=== PATIENT | female | born 1965 | race African-American/Black ===

== ENCOUNTER 2016-09-02 07:46 | Emergency (ER) | payer OTHER ==
[2016-09-02 07:52] VITALS: TEMP 98; BMI 29.2
--- NOTE | 2016-09-02 08:02 | PDOC ---
History of Present Illness - General History Source: Patient Exam Limitations: No Limitations <Jelly Hairston - Last Filed: 09/02/16 11:56> <Ajay Silverio - Last Filed: 09/02/16 15:45> - General Chief Complaint: Chest Pain Stated Complaint: CHEST PAIN Time Seen by Provider: 09/02/16 07:53 - History of Present Illness Initial Comments: 09/02/16 10:38 The patient is a 51 year old female, with a significant past medical history of liposuction surgery(2 weeks ago), asthma, rheumatoid arthritis, and hypertension (no longer on meds as per doctors orders), who presents to the emergency department complaining of chest pain since approximately 04:30. The patient reports she woke up feeling fine this morning, but on her way to work she began to develop some nausea. Following the nausea, patient reports chest pain, which she describes as a sharp pressure localized at the center of her chest. Patient reports pain radiates into her left back. She reports associated shortness of breath and weakness. She states she attempted to cough to gather some air, but states the coughing makes her chest pain worse. Patient reports some tightness in her legs with associated swelling. She reports her right leg swelling is part of her baseline. Patient managed to get herself to the bus stop after resting, but called EMS due to chest pain and increased coldness. She denies any fever, chills, vomiting, or palpitations, hemoptysis. During transport, EMS administered 4 baby aspirin and Zofran, with relief of nausea. Patient had liposuction 2 weeks ago and has a drain in place(draining yellow serous fluids) , which she is supposed to get removed today. No associated fevers/chills, n/v, abd pain, back pain. Patient has been intubated in the past due to allergies. She denies any history of DVTs or PEs. Allergies: NKDA Past Surgical History: Gastric Bypass Social History: Nonsmoker. No ETOH or drug use. (Jelly Hairston) Past History <Jelly Hairston - Last Filed: 09/02/16 11:56> - Past Medical History Asthma: Yes HTN: Yes Other medical history: RHEUMATOID ARTHRITIS. - Surgical History Abdominal Surgery: Yes (GASTRIC BYPASS: 2014. ROSELINE WOLF 08/21/16.) - Psycho/Social/Smoking Cessation Hx Anxiety: No Suicidal Ideation: No Smoking History: Never smoked Hx Alcohol Use: No Drug/Substance Use Hx: No Substance Use Type: None <Ajay Silverio - Last Filed: 09/02/16 15:45> - Past Medical History Allergies/Adverse Reactions: Allergies Allergy/AdvReac Type Severity Reaction Status Date / Time shellfish derived Allergy Verified 09/02/16 08:41 Home Medications: Ambulatory Orders NK [No Known Home Medication] 09/02/16 Review of Systems - Review of Systems Able to Perform ROS?: Yes <Jelly Hairston - Last Filed: 09/02/16 11:56> <Ajay Silverio - Last Filed: 09/02/16 15:45> - Review of Systems Comments:: 09/02/16 10:40 Constitutional: +weakness. no reported Fever, Chills, HEENT: no reported vision changes, sore throat Respiratory: +cough, +sob, no reported hemoptysis Cardiac: +chest pain, +leg swelling. No reported palpitations, light headedness Abd/GI: +nausea. no reported abd pain, vomiting, blood per rectum, melena, diarrhea : no reported dysuria, frequency, discharge Musculskelatal: no reported back pain, joint swelling Skin: no reported bruising, erythema, rash Neurological: no reported headache, numbness, tingling, ataxia. Hematologic: no reported anemia, easy bruising, easy bleeding (Renee Hairstony) *Physical Exam <Jelly Hairston - Last Filed: 09/02/16 11:56> <Ajay Silverio - Last Filed: 09/02/16 15:45> - Vital Signs Last Vital Signs Temp Pulse Resp BP Pulse Ox 98 F 50 L 16 119/84 98 09/02/16 07:50 09/02/16 14:30 09/02/16 14:30 09/02/16 14:30 09/02/16 14:30 - Physical Exam Comments: 09/02/16 10:42 GENERAL: The patient is awake, alert, and fully oriented, Nontoxic - in no acute distress. HEAD: Normocephalic, atraumatic. EYES: extraocular movements intact, sclera anicteric, conjunctiva clear. ENT: Normal voice, Moist mucous membranes. NECK: Normal range of motion, supple LUNGS: Breath sounds equal, clear to auscultation bilaterally. No wheezes, no rhonchi, no rales. HEART: Regular rate and rhythm, normal S1 and S2 without murmur, rub or gallop. ABDOMEN: abd wound c/d/i, ELY drain in place with small amount of serous drainage , Soft, nontender, normoactive bowel sounds. No guarding, no rebound. No CVA tenderness EXTREMITIES: +edema of L calf, no tendrness, Normal range of motion NEUROLOGICAL: No facial assymetry, Normal speech, moving all 4 extermities spontaneously and symmetrically PSYCH: Normal mood, normal affect. SKIN: Warm, Dry, normal turgor. (Jelly Hairston) Heart Score/ECG Review <Jelly Hairston - Last Filed: 09/02/16 11:56> <Ajay Silverio - Last Filed: 09/02/16 15:45> - ECG Impressions Comment:: 09/02/16 08:21 Twelve-lead EKG was performed and reviewed by me. There is normal sinus rhythm with a rate of 55 The axis is normal. possible lead v2/v3 lead reversal Nonspecific T wave abnormality (Ajay Silverio) ED Treatment Course - LABORATORY CBC & Chemistry Diagram: 09/02/16 08:31 09/02/16 08:31 <Jelly Hairston - Last Filed: 09/02/16 11:56> - LABORATORY CBC & Chemistry Diagram: 09/02/16 08:31 09/02/16 08:31 <Ajay Silverio - Last Filed: 09/02/16 15:45> - ADDITIONAL ORDERS Additional order review: Laboratory Results 09/02/16 09/02/16 09/02/16 14:20 08:31 08:31 INR 1.04 PTT (Actin FS) 36.8 H D-Dimer Sodium Potassium Chloride Carbon Dioxide Anion Gap BUN Creatinine Creat Clearance w eGFR Random Glucose Calcium Total Bilirubin AST ALT Alkaline Phosphatase Creatine Kinase 97 Troponin I < 0.02 B-Natriuretic Peptide Total Protein Albumin Serum , Qual Negative 09/02/16 09/02/16 09/02/16 08:31 08:31 08:31 INR PTT (Actin FS) D-Dimer 433 H Sodium Potassium Chloride Carbon Dioxide Anion Gap BUN Creatinine Creat Clearance w eGFR Random Glucose Calcium Total Bilirubin AST ALT Alkaline Phosphatase Creatine Kinase 107 Troponin I < 0.02 B-Natriuretic Peptide 230.79 H Total Protein Albumin Serum , Qual 09/02/16 08:31 INR PTT (Actin FS) D-Dimer Sodium 142 Potassium 4.7 Chloride 111 H Carbon Dioxide 25 Anion Gap 6 L BUN 5 L Creatinine 0.6 Creat Clearance w eGFR > 60 Random Glucose 92 Calcium 8.5 Total Bilirubin 0.4 AST 18 ALT 17 Alkaline Phosphatase 100 Creatine Kinase Troponin I B-Natriuretic Peptide Total Protein 5.6 L Albumin 2.9 L Serum , Qual 09/02/16 08:31 RBC 3.74 MCV 82.1 MCHC 32.3 RDW 15.2 MPV 7.4 L Neutrophils % 57.9 Lymphocytes % 31.9 Monocytes % 7.1 Eosinophils % 2.8 Basophils % 0.3 - RADIOLOGY Radiology Studies Ordered: Category Date Time Status CHEST CTA [CT] Stat CT Scan 09/02/16 10:19 Completed CHEST X-RAY PORTABLE* [RAD] Stat Radiology 09/02/16 08:04 Completed DUPLEX VASCUL US-1 LEG [US] Stat Ultrasound 09/02/16 08:17 Completed Radiograph Interpretation: 09/02/16 10:19 EXAM: CXR INTERPRETED BY: Dr. Berkowitz REVIEWED BY: Dr. Silverio IMPRESSION: Moderate cardiomegaly. 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 There is widening of the left AC joint raising possibility of AC separation of indeterminate age and recommend clinical correlation. Findings were discussed with Dr. Silverio at 9:21 AM on . EXAM: Left Leg Doppler US INTERPRETED BY: Dr. Gaona REVIEWED BY: Dr. Silverio IMPRESSION: There is no evidence of deep venous thrombosis in the left lower extremity. EXAM: CT Chest INTERPRETED BY: Dr. Gaona REVIEWED BY: Dr. Silverio IMPRESSION: Unremarkable examination. There is no evidence of a pulmonary embolus in the main pulmonary artery and its proximal branches, bilaterally. No acute lung disease is present. Multiple sutures around the stomach suggestive of a gastric sleeve surgery. Correlate clinically (Hairston,Giomilsy) - Medications Given in the ED: ED Medications Discontinued Medications Generic Name Dose Route Start Last Admin Trade Name Freq PRN Reason Stop Dose Admin Diphenhydramine HCl 50 mg 09/02/16 11:15 09/02/16 11:20 Benadryl Injection - IVPUSH 09/02/16 11:16 50 mg ONCE ONE Administration Medical Decision Making <Jelly Hairston - Last Filed: 09/02/16 11:56> <Ajay Silverio - Last Filed: 09/02/16 15:45> - Medical Decision Making 09/02/16 08:18 51y F hx of asthma, htn (currently controlled w/o meds), 2 weeks s/p liposuction , presents with complaint of chest pain, pt was ambulating to work when she flet sudden onset of nausea associated with a sharp substernal chest pin worse with deep breaths. on exam pt well appearing, in no distress with vitals showing mild bradycardia, with swelling noted in her R calf. differential includes PE/DVT, acs will ck cbc, cmp, trop, bnp, d-dimer ekg, cxr A portion of this note was documented by scribe services under my direction. I have reviewed the details of the note, within reason, and agree with the documentation with the following case summary and management plan written by me 09/02/16 11:53 pts labs reviewed noted for slightly elevated dimer, CTA neg for PE duplex US negative for DVT Trop neg x 1 pt had epsidoe of pruritis after CTA, pt given benadryl 50mg will obtain antoher troponin at 2pm. 09/02/16 15:41 pt feeling improved trop negative no itching nor chest pain will dc with pmd and cardiology fu at [facility] return precautions were disucssed I discussed the physical exam findings, ancillary test results and final diagnoses with the patient. I answered all of the patient's questions. The patient was satisfied with the care received and felt comfortable with the discharge plan and treatment plan. The patient will call their primary care physician within 24 hours to arrange follow-up and will return to the Emergency Department with any new, persistent or worsening symptoms. (Ajay Silverio) *DC/Admit/Observation/Transfer <Jelly Hairston - Last Filed: 09/02/16 11:56> - Discharge Dispostion Admit: No <Ajay Silverio - Last Filed: 09/02/16 15:45> Diagnosis at time of Disposition: Atypical chest pain - Discharge Dispostion Disposition: HOME Condition at time of disposition: Improved - Referrals Referrals: Frank Bob [Other] - Patient Instructions Printed Discharge Instructions: DI for Atypical Chest Pain Additional Instructions: Return to the emergency department immediately with ANY new, persistent or worsening symptoms including any chest pain, shortness of breath or any other concerns. You MUST call and follow up with your doctor and senior tax specialist in 72 hrs for further evaluation of your symptoms. Results were discussed with you. Please make sure your doctor reviews the results of your emergency evaluation. Print Language: UKRAINIAN - Attestations Scribe Attestion: 09/02/16 10:42 Documentation prepared by Jelly Hairston, acting as spanish medical interpreter for Ajay Silverio MD. (Jelly Hairston)
[2016-09-02 08:48] LABS: BASOPHIL 0.3 % (0-2.0); EOSINOPHIL 2.8 % (0-4.5); MCH 26.5 pg (25.7-33.7); MCHC 32.3 g/dl (32.0-36.0); MEAN CELL VOLUME 82.1 fl (80-96); MEAN PLT VOLUME 7.4 fl (7.5-11.1); NEUTROPHILS 57.9 % (42.8-82.8); PLATELET COUNT 274 K/MM3 (134-434); RDW 15.2 % (11.6-15.6); WHITE BLOOD COUNT 4.6 K/mm3 (4.0-10.0)
[2016-09-02 09:12] LABS: INR 1.04 (0.82-1.09); PROTHROMBIN TIME (PATIENT) 11.5 SEC (9.98-11.88)
[2016-09-02 09:15] LABS: ACTIVATED PTT 36.8 SECONDS (26.9-34.4)
[2016-09-02 09:44] LABS: ALBUMIN 2.9 g/dl (3.4-5.0); ALK PHOS 100 U/L (45-117); ANION GAP 6 (8-16); BILIRUBIN,TOTAL 0.4 mg/dL (0.2-1.0); CALCIUM 8.5 mg/dL (8.5-10.1); CO2 25 mmol/L (21-32); CREATININE 0.6 mg/dL (0.55-1.02); GLUCOSE,RANDOM 92 mg/dL (74-106); SGOT/AST 18 U/L (15-37); SGPT/ALT 17 U/L (12-78); TOT PROT 5.6 g/dl (6.4-8.2)
[2016-09-02 09:45] LABS: TROPONIN I < 0.02 ng/ml (0.00-0.05)
[2016-09-02] MEDS ORDERED: EPINEPHrine/PF 1 MG/1 ML (1:1,000) AMPULE ONE (10:31)
[2016-09-02] MEDS ORDERED: methylPREDNISolone NA SUCC 125 MG/2 ML VIAL ONE (10:32)
[2016-09-02] MEDS ORDERED: RANITIDINE HCL 50 MG/2 ML VIAL ONE (10:33)
[2016-09-02] MEDS ORDERED: FAMOTIDINE 20 MG/50 ML IVPB 50 ML IVPB ONE (10:33)
[2016-09-02 12:08] VITALS: PULSE 50
--- NOTE | 2016-09-02 13:07 | EKG ---
Test Reason : Blood Pressure : / mmHG Vent. Rate : 055 BPM Atrial Rate : 055 BPM P-R Int : 160 ms QRS Dur : 080 ms QT Int : 450 ms P-R-T Axes : 044 -04 -02 degrees QTc Int : 430 ms SINUS BRADYCARDIA MINIMAL VOLTAGE CRITERIA FOR LVH, MAY BE NORMAL VARIANT NONSPECIFIC T WAVE ABNORMALITY ABNORMAL ECG NO PREVIOUS ECGS AVAILABLE Confirmed by PA DAVIDSON MD ([id number]) on 09/02/2016 1:07:01 PM Referred By: Confirmed By:PA DAVIDSON MD
[2016-09-02 14:30] VITALS: BP 119/84
[2016-09-02 15:00] LABS: TROPONIN I < 0.02 ng/ml (0.00-0.05)
== END 2016-09-02 16:08 | disposition home or self-care (01) ==
LOC: JER 07:46
PROC: 3E033GC Introduction of Other Therapeutic Substance into Peripheral Vein, Percutaneous Approach (ICD-10-PCS; principal; 2016-09-02)
DX: R07.89 Other chest pain (principal); Z98.890 Other specified postprocedural states
CPT/HCPCS: 36415; 71010-TC; 71275-TC; 80053; 82550; 83880; 84484; 84703; 85025; 85379; 85610; 85730; 93005; 93010; 93971-TC; 99285-25